=== PATIENT | female | born 1990 | race African-American/Black ===

== ENCOUNTER 2017-04-06 13:25 | Emergency (ER) | payer OTHER ==
[~2017-04-06] VITALS: Ht 160 cm; Wt 77.1 kg
[~2017-04-06 13:25] MED LIST: ADVIL LIQUI-GE200 MG PO; ALLEGRA-D 12 H1 EACH PO; AZITHROMYCIN 2250 MG PO; CIPRO HC OTIC S10 ML OTIC; CIPROFLOXACIN500 M1 PO; EAR DROPS15 ML OT; FLEXERIL PO; NAPROSYN500 MG PO; NOHOMEMEDICATIONS; NORCO 5-325 TA1 EACH PO; PHENERGAN 25 MG25 M1 PO; PRENATAL; TESSALON PERLE100 MG PO; ZOFRAN ODT4 MG PO
[2017-04-06 13:43] LABS: URINE BILIRUBIN NEGATIVE (Negative); URINE BLOOD NEGATIVE (Negative); URINE COLOR YELLOW; URINE GLUCOSE-RANDOM* NEGATIVE (Negative); URINE KETONES NEGATIVE (Negative); URINE LEUKOCYTES-REFLEX NEGATIVE (Negative); URINE PROTEIN (DIPSTICK) NEGATIVE (Negative); URINE SPECIFIC GRAVITY 1.025 (1.003-1.035); URINE UROBILINOGEN 0.2 E.U./dl (0.2-1.0)
[2017-04-06] MEDS ORDERED: IBUPROFEN 600600 M1 PO (13:47)
[2017-04-06 14:11] LABS: HEMATOCRIT 38.4 % (37.0-47.0); HEMOGLOBIN 12.8 gm/dL (12.0-15.0); MCH 28.9 pg (26.0-34.0); MCHC 33.2 g/dL (28.0-37.0); MCV 86.9 fL (80.0-100.0); PLATELET COUNT 209 thou/uL (150-400); RBC 4.42 mil/uL (4.20-5.00); RDW 14.4 % (10.5-14.5); WBC 6.4 thou/uL (4.0-11.0)
[2017-04-06 14:12] LABS: MANUAL DIFF YES
[2017-04-06 14:22] LABS: CREATININE 0.9 mg/dL (0.6-1.0); POTASSIUM 4.2 mmol/L (3.5-5.1)
[2017-04-06 14:26] LABS: ALBUMIN 3.5 g/dL (3.4-5.0); TOTAL BILIRUBIN 0.2 mg/dL (<0.1-1.0); TOTAL PROTEIN 7.6 g/dL (6.4-8.2)
[2017-04-06 14:37] LABS: ABSOLUTE NEUTROPHILS 3.3 thou/uL (1.4-8.2); PLATELET ESTIMATE NORMAL; TOTAL CELL COUNT 100
[2017-04-06] MEDS ORDERED: NAPROSYN500 MG PO (15:25)
[2017-04-06] MEDS ORDERED: BENTYL 20 MG TA20 M1 PO (15:25)
[2017-04-06] MEDS ORDERED: ONDANSETRON HCL4 M2 PO (15:28)
[2017-04-06 16:00] VITALS: BP 130/70
== END 2017-04-06 16:41 | disposition home or self-care (01) ==
LOC: ER 13:25
PROVIDERS: Emergency Medicine
DX: N83.201 Unspecified ovarian cyst, right side (principal)